=== PATIENT | male | born 1985 | race Hispanic/Latino ===

== ENCOUNTER 2017-03-04 02:35 | Emergency (ER) | payer OTHER ==
[~2017-03-04] VITALS: Ht 172.7 cm; Wt 90.7 kg
[~2017-03-04 02:35] MED LIST: CILOXAN5 ML OPH
--- NOTE | 2017-03-04 02:50 | ED NECK/BACK PAIN COMPLAINT ---
History of Present Illness General Chief Complaint: Low Back Pain/Injury Stated Complaint: LOWER BACK PAIN SINCE 142903/03/17 Source: patient, family Exam Limitations: no limitations Vital Signs & Intake/Output Vital Signs & Intake/Output Vital Signs Date Time Temp Pulse Resp B/P B/P Pulse O2 O2 Flow FiO2 Mean Ox Delivery Rate 03/04 0251 98 Room Air 03/04 025 98.7 95 18 135/98 96 Room Air Allergies Coded Allergies: NO KNOWN ALLERGIES (05/10/12) Reconcile Medications Cyclobenzaprine HCl 10 MG TABLET 1 TAB PO TID PRN muscle spasm Ibuprofen 800 MG TABLET 1 TAB PO TID PRN pain Triage Nurses Notes Reviewed? 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 He states that the pain began while he was at work. He does not recall lifting anything heavy. He notes the pain radiates into both of his upper buttocks. He has no weakness chills dysuria numbness or tingling in his lower extremities he is otherwise well. He has tried some Motrin with some moderate effect. He has no loss of bowel or bladder or other concerning symptoms. Past History Medical History Any Pertinent Medical History? none Tetanus Vaccine: 05/10/12 Surgical History Surgical History: non-contributory Psychosocial History What is your primary language Czech Family History Hx Contributory? No Review of Systems Review of Systems Constitutional: Reports: no symptoms. Eyes: Reports: no symptoms. Ears, Nose, Throat, Mouth: Reports: no symptoms. Respiratory: Reports: no symptoms. Cardiovascular: Reports: no symptoms. Gastrointestinal/Abdominal: Reports: no symptoms. Musculoskeletal: Reports: no symptoms. Skin: Reports: no symptoms. Neurological/Psychological: Reports: no symptoms. All Other Systems: Reviewed and Negative Physical Exam Physical Exam General Appearance: well developed/nourished, mild distress Head: atraumatic Eyes: Bilateral: PERRL, EOMI. Ears, Nose, Throat, Mouth: hearing grossly normal Neck: normal inspection, supple, full range of motion, normal alignment, abnormal alignment, muscle spasm, paraspinous muscle tender, no midline tenderness Respiratory: normal breath sounds Cardiovascular: regular rate/rhythm Gastrointestinal: soft, non-tender Back: normal inspection Extremities: normal range of motion Neurologic/Psych: awake, alert, oriented x 3, normal mood/affect Skin: intact, normal color, warm/dry Progress Differential Diagnosis: herniated disc, myofascial strain, sciatica Plan of Care: Discussed at length with patient. We'll treat with NSAIDs and muscle relaxers. I encouraged close follow-up with PMD or to return to emergency department if he is not feeling better Departure Departure Disposition: HOME OR SELF CARE Condition: Stable Clinical Impression Primary Impression: Back pain Referrals: PATIENT HAS NO PRIMARY CARE DR (PCP/Family) Additional Instructions: follow up with your primary care doctor Departure Forms: Customer Survey General Discharge Information Prescriptions: Current Visit Scripts Ibuprofen 1 TAB PO TID PRN pain #60 TAB Ref 1 Cyclobenzaprine HCl 1 TAB PO TID PRN muscle spasm #30 TAB Ref 1
[2017-03-04 02:51] VITALS: BP 135/98
[2017-03-04] MEDS ORDERED: CYCLOBENZAPRINE10 M1 PO (02:51)
[2017-03-04] MEDS ORDERED: IBUPROFEN800 M1 PO (02:51)
== END 2017-03-04 02:58 ==
LOC: ERH 02:35
DX: M54.5 Low back pain (principal)
CPT/HCPCS: 96372; J1885

== ENCOUNTER 2017-04-18 11:31 | Emergency (ER) | payer OTHER ==
[~2017-04-18] VITALS: Ht 172.7 cm; Wt 90.7 kg
[~2017-04-18 11:31] MED LIST changes: +CYCLOBENZAPRINE10 M1 PO; +IBUPROFEN800 M1 PO
[2017-04-18 11:46] VITALS: BP 134/75
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
== END 2017-04-18 13:23 ==
LOC: ERH 11:31
DX: M25.561 Pain in right knee (principal)
CPT/HCPCS: 73562-RT